=== PATIENT | female | born 2000 | race Hispanic/Latino ===

== ENCOUNTER 2019-08-23 23:47 | Emergency (ER) | payer MEDICAID, OTHER ==
[2019-08-24 00:10] LABS: APPEARANCE,URINE Clear (CLEAR); BILIRUBIN,URINE Negative (NEGATIVE); COLOR,URINE Yellow (YELLOW); GLUCOSE, URINE (UA) Negative (NEGATIVE); KETONES,URINE Trace mg/dL (NEGATIVE); LEUKOCYTE ESTERASE ,URINE Small (NEGATIVE); NITRATE,URINE Negative (NEGATIVE); OCCULT BLOOD,URINE Negative (NEGATIVE); PH,URINE 5.5 (5.0-8.0); PROTEIN,URINE Negative (NEGATIVE)
[2019-08-24 00:17] LABS: BACTERIA,URINE Rare /HPF (None Seen); MUCUS,URINE Few LPF (None Seen); RBC,URINE 0-1 /HPF (0-1); SQUAMOUS EPITHELIAL CELL,UR Few /HPF (0-2)
== END 2019-08-24 02:01 | disposition home or self-care (01) ==
LOC: EDH 23:47
DX: O23.41 Unspecified infection of urinary tract in pregnancy, first trimester (principal); O26.891 Other specified pregnancy related conditions, first trimester; R07.89 Other chest pain; Z3A.01 Less than 8 weeks gestation of pregnancy
CPT/HCPCS: 81001; 81025; 93005

== ENCOUNTER 2020-04-02 06:30 | Inpatient (IN) | payer MEDICAID ==
[2020-04-02] MEDS ORDERED: CEFAZOLIN SODIUM 1 GM VIAL IVP PRN (08:15)
[2020-04-02] MEDS ORDERED: LACTATED RINGERS 1000ML 1,000 ML IV SCH (08:15)
[2020-04-02] MEDS ORDERED: CALDOLOR 800MG+NS 250ML 250 ML IV PRN (08:15)
[2020-04-02 08:39] LABS: HEMATOCRIT 34.4 % (36-48); MEAN CORPUSCULAR HEMOGLOBIN 26.1 pg (27.0-33.0); MEAN CORPUSCULAR VOLUME 81.7 fL (80-100); RED BLOOD CELL COUNT(AUTO) 4.21 MIL/uL (4.00-5.50); RED CELL DISTRIBUTION WIDTH 14.2 % (11.0-15.5); WHITE BLOOD COUNT (AUTO) 10.9 K/uL (4.8-10.8)
[2020-04-02] MEDS ORDERED: OXYTOCIN-LR 20 UNITS/1000 ML 1,000 ML IV ONE (10:11)
[2020-04-02] MEDS ORDERED: DURAMORPH PF1 MG/ML 10ML AMP IV ONE (10:27)
[2020-04-02] MEDS ORDERED: CEFAZOLIN SODIUM 1 GM VIAL IVP ONE (10:50)
[2020-04-02] MEDS ORDERED: LANOLIN 30GM OINTMENT TP PRN (12:30)
[2020-04-02] MEDS ORDERED: DIPHENHYDRAMINE HCL 25 MG CAPSULE PO PRN (12:30)
[2020-04-02] MEDS ORDERED: DIPH,PERTUSS(ACELL),TET VAC/PF 0.5 ML VIAL IM SCH (12:30)
[2020-04-02] MEDS ORDERED: SIMETHICONE 80 MG TAB.CHEW PO PRN (12:30)
[2020-04-02] MEDS ORDERED: MEPERIDINE-PF 75 MG/ML SYG IM PRN (12:30)
[2020-04-02] MEDS ORDERED: OXYTOCIN-LR 20 UNITS/1000 ML 1,000 ML IV PRN (12:30)
[2020-04-02] MEDS ORDERED: ACETAMINOPHEN-CODEINE 300/30MG TAB PO PRN (12:30)
[2020-04-02] MEDS ORDERED: HYDROCODONE/ACETAMINOPHEN 5/325 MG TAB PO PRN (12:30)
[2020-04-02] MEDS ORDERED: BISACODYL 10 MG SUPP.RECT RC PRN (12:30)
[2020-04-02] MEDS ORDERED: PROMETHAZINE HCL 25 MG/ML 1ML AMPULE IM PRN (12:30)
[2020-04-02] MEDS ORDERED: ACETAMINOPHEN EXTRA STRENGTH 500 MG TABLET PO PRN (12:30)
[2020-04-02] MEDS ORDERED: SODIUM CHLORIDE 0.9% 10 ML VIAL IVP PRN (12:30)
[2020-04-02 13:55] VITALS: BP 101/62
[2020-04-02] MEDS ORDERED: ONDANSETRON HCL 4 MG/2 ML VIAL ONE (14:09)
[2020-04-02] MEDS ORDERED: ONDANSETRON HCL 4 MG/2 ML VIAL IVP PRN (14:30)
[2020-04-02] MEDS ORDERED: NALOXONE HCL 0.4 MG/1 ML ML IVP PRN ×3 (14:30)
[2020-04-02] MEDS ORDERED: DiphenhydrAMINE HCL 50 MG/ML VIAL IVP PRN (14:30)
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
[2020-04-02 17:12] VITALS: BP 115/53
--- NOTE | 2020-04-02 18:20 | NUR ---
PUBLIC HEALTH PHYSICIAN AT NURSE'S STATION AND UPDATED ON CPS WORKER'S PHONE CALL. PUBLIC HEALTH PHYSICIAN STATES TO NOTIFY MANAGER PRICING WHEN PATIENT IS DISCHARGED.
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
--- NOTE | 2020-04-02 19:00 | NUR ---
PM Assessment Received pt with spouse at the bedside, D50.45NS infusing well, routine assessment done, plan of care discuss made aware possible d/c tomorrow. Pt was made aware at around 0600 her Pitts catheter will be discontinued & by then she need to drink plenty of water as she will need to void within 5 to 8 hours, verbalizes understanding. Pt currently denies discomfort. Pt noted relax & at ease with her 's presence, observed doing video chat with their friends at this time. Per pt claimed she is somewhat pro in caring for her baby as this is now their 3rd child.
[2020-04-02] MEDS: CEFAZOLIN SODIUM 1 GM VIAL IVP SCH (19:06)
[2020-04-02] MEDS: DEXTROSE 5 %-0.45 % NACL 1,000 ML IV PRN (19:08)
[2020-04-02 19:30] VITALS: BP 115/58
[2020-04-02] MEDS: DOCUSATE SODIUM 100 MG CAP PO SCH (20:36)
[2020-04-02] MEDS: CALDOLOR 800MG+NS 250ML 250 ML IV SCH (20:37)
--- NOTE | 2020-04-02 23:36 | NUR ---
Re: Clear Liquid Diet PT called & requesting if she can have something to eat like a sandwich as she is hungry. Pt has been served with some saltine crackers earlier, & claimed has been drinking water, no more feeling of N/V, I went ahead & gave pt A [place] sandwich as she prefers since noted with order LILI.
[2020-04-03 00:34] VITALS: BP 96/58
[2020-04-03] MEDS: CEFAZOLIN SODIUM 1 GM VIAL IVP SCH (02:34)
[2020-04-03 04:25] VITALS: BP 98/61
[2020-04-03] MEDS: CALDOLOR 800MG+NS 250ML 250 ML IV SCH (04:42)
[2020-04-03] MEDS: DEXTROSE 5 %-0.45 % NACL 1,000 ML IV PRN (06:28)
--- NOTE | 2020-04-03 06:30 | NUR ---
Re: Pitts Catheter Discontinuation of Pitts Catheter explained & done aseptically, well tolerated followed with enma care. Scant bleeding noted. Reminded to drink plenty of fluids. DTV [id number].
[2020-04-03 07:05] LABS: MEAN CORPUSCULAR HEMOGLOBIN 26.3 pg (27.0-33.0); MEAN CORPUSCULAR HGB CONC 31.3 g/dL (32.0-36.0); MEAN CORPUSCULAR VOLUME 83.8 fL (80-100); RED BLOOD CELL COUNT(AUTO) 3.58 MIL/uL (4.00-5.50); RED CELL DISTRIBUTION WIDTH 14.3 % (11.0-15.5); WHITE BLOOD COUNT (AUTO) 10.9 K/uL (4.8-10.8)
[2020-04-03 07:15] LABS: HEPATITIS Bs ANTIGEN SCREEN P Negative (Negative)
[2020-04-03 07:16] VITALS: BP 98/58
--- NOTE | 2020-04-03 08:30 | NUR ---
ASSESSMENT: RECEIVED RESTING IN BED, EXPLAINED POC AND UNDERSTANDING VERBALIZED, CALL SHELLEY AT HER SIDE.
[2020-04-03] MEDS: DOCUSATE SODIUM 100 MG CAP PO SCH (09:12)
--- NOTE | 2020-04-03 09:28 | NUR ---
ACTIVITY: ASSISSTED TO BEDSIDE CHAIR, STEADY GAIT. COMFORTABLE.
--- NOTE | 2020-04-03 09:33 | NUR ---
ACTIVITY: AMB IN ROOM.
--- NOTE | 2020-04-03 10:45 | NUR ---
ASSESSMENT: DR CABRERA HERE, SBAR REPORT GIVEN,SPOKE WITH PT AND AND DISCUSSED POC FOR DISCHARGE HOME TODAY.
--- NOTE | 2020-04-03 11:23 | NUR ---
HYGEINE: TAKING SHOWER
[2020-04-03 11:30] VITALS: BP 97/54
--- NOTE | 2020-04-03 12:22 | NUR ---
DISCHARGE: DISCHARGE INSTRUCTIONS GIVEN TO PT ON SELF CARE POST R C/S, INCISION CARE, REVIEWED RX FOR T #3 PRN FOR PAIN AND TO FOLLOW UP WITH DR MOORE ON 04/09 AT 1350 OR SOONER IF NEEDED. UNDERSTANDING VERBALIZED AND COPIES OF ALL INSTRUCTIONS GIVEN TO PT.
[2020-04-03] MEDS ORDERED: IBUPROFEN 600 MG TABLET PO PRN (13:00)
--- NOTE | 2020-04-03 13:55 | NUR ---
DISCHARGE: DISCHARGED HOME VIA W/C WITH HER BABY TO PRIVATE CAR WITH .
== END 2020-04-03 13:55 | disposition home or self-care (01) | DRG 540 ==
LOC: LDH 06:30 → WSH 13:55
PROVIDERS: ADMIT Obstetrics & Gynecology; ATTEND Obstetrics & Gynecology
PROC: 3E0234Z Introduction of Serum, Toxoid and Vaccine into Muscle, Percutaneous Approach (ICD-10-PCS; 2020-04-02)
PROC: 10D00Z1 Extraction of Products of Conception, Low, Open Approach (ICD-10-PCS; principal; 2020-04-02 13:00)
DX: O34.211 Maternal care for low transverse scar from previous cesarean delivery (principal); O34.03 Maternal care for unspecified congenital malformation of uterus, third trimester; O69.2XX0 Labor and delivery complicated by other cord entanglement, with compression, not applicable or unspecified; Q51.3 Bicornate uterus; Z37.0 Single live birth; Z23 Encounter for immunization; Z3A.37 37 weeks gestation of pregnancy
CPT/HCPCS: 36415; 59510; 85027; 86592; 86850; 86900; 86901; 87340; A4344; G0378; J0690; J1741; J2274; J2405; J2590; J7120

== ENCOUNTER 2023-06-24 18:15 | Emergency (ER) | payer MEDICAID, OTHER ==
[~2023-06-24] VITALS: Ht 160 cm; Wt 72.6 kg
[2023-06-24 19:24] LABS: BASOPHILS # (AUTO) 0.04 K/uL (0.00-0.20); BASOPHILS % (AUTO) 0.2 % (0.0-5.0); EOSINOPHILS # (AUTO) 0.46 K/uL (0.00-0.70); EOSINOPHILS % (AUTO) 2.7 % (0.0-8.0); HEMATOCRIT 35.6 % (36-48); IMMATURE GRANULOCYTE ABSOLUTE 0.08 K/uL (0-1); LYMPHOCYTES # (AUTO) 1.9 K/uL (1.0-4.8); LYMPHOCYTES % (AUTO) 10.9 % (21.0-51.0); MEAN CORPUSCULAR HEMOGLOBIN 25.6 pg (27.0-33.0); MEAN CORPUSCULAR HGB CONC 31.5 g/dL (32.0-36.0); MEAN CORPUSCULAR VOLUME 81.5 fL (79-99); MONOCYTES # (AUTO) 0.7 K/uL (0.1-1.0); MONOCYTES % (AUTO) 4.1 % (3.0-13.0); NEUTROPHILS # (AUTO) 13.9 K/uL (1.8-7.7); NEUTROPHILS % (AUTO) 81.6 % (40.0-77.0); PLATELET COUNT (AUTO) 297 K/uL (130-400); RED BLOOD CELL COUNT(AUTO) 4.37 MIL/uL (4.00-5.50); RED CELL DISTRIBUTION WIDTH 16.5 % (11.0-15.5); WHITE BLOOD COUNT (AUTO) 17.1 K/uL (4.8-10.8)
[2023-06-24 19:39] LABS: CREATININE 0.8 mg/dL (0.5-1.5); POTASSIUM 3.5 mmol/L (3.5-5.1)
[2023-06-24 19:42] LABS: ALBUMIN 2.9 g/dL (3.5-5.0); BILIRUBIN,TOTAL 0.2 mg/dL (0.2-1.0); TOTAL PROTEIN, SERUM 7.5 g/dL (6.0-8.3)
[2023-06-24 20:56] LABS: APPEARANCE,URINE CLEAR (CLEAR); BILIRUBIN,URINE NEGATIVE (NEGATIVE); COLOR,URINE YELLOW (YELLOW); GLUCOSE, URINE (UA) NEGATIVE (NEGATIVE); KETONES,URINE NEGATIVE (NEGATIVE); LEUKOCYTE ESTERASE ,URINE NEGATIVE Leu/uL (NEGATIVE); NITRATE,URINE NEGATIVE (NEGATIVE); OCCULT BLOOD,URINE SMALL (NEGATIVE); PROTEIN,URINE NEGATIVE (NEGATIVE); UROBILINOGEN,URINE 6 mg/dL (0.2-1.0)
[2023-06-24] MEDS ORDERED: ACETAMINOPHEN 500 MG TABLET PO ONE (21:00)
[2023-06-24 21:02] LABS: ADD UA MICROSCOPIC YES
[2023-06-24 21:04] LABS: HCG,QUALITATIVE URINE NEGATIVE (NEGATIVE)
[2023-06-24 21:05] LABS: BACTERIA,URINE RARE /HPF (None Seen); MUCUS,URINE RARE LPF (None Seen); SQUAMOUS EPITHELIAL CELL,UR RARE /HPF (0-2)
[2023-06-24] MEDS ORDERED: IBUP-2077 PO (22:36)
[2023-06-24] MEDS ORDERED: CEPH500B PO (22:36)
[2023-06-24] MEDS ORDERED: DICY20TA2 PO (22:36)
[2023-06-24 23:12] VITALS: BP 126/64; PULSE 92; RESP 16; O2SAT 97
== END 2023-06-24 23:20 | disposition home or self-care (01) ==
LOC: EDH 18:15
DX: R10.9 Unspecified abdominal pain (principal); D50.9 Iron deficiency anemia, unspecified; R82.71 Bacteriuria; D72.828 Other elevated white blood cell count; Z98.890 Other specified postprocedural states
CPT/HCPCS: 36415; 74176; 80053; 81001; 81025; 85025; 87088